=== PATIENT | male | born 1990 | race Hispanic/Latino ===

== ENCOUNTER 2019-09-15 14:14 | Emergency (ER) | payer OTHER ==
[2019-09-15 15:31] LABS: #Eosinphils 0.1 thou/uL (0.0-0.7); #Lymphocytes 1.4 thou/uL (1.20-3.40); #Monocytes 0.7 thou/uL (0.11-0.59); #Neutrophils 8.9 thou/uL (1.40-6.50); %Basophils 0.4 % (0.0-1.0); %Eosinophils 0.5 % (0.0-10.0); %Lymphocytes 12.4 % (21.0-51.0); %Monocytes 6.1 % (0.0-10.0); %Neutrophils 80.7 % (42.0-75.0); Mean Corpuscular HGB CONC 34.4 g/dL (32.0-36.0); Mean Corpuscular Hemoglobin 30.1 pg (27.0-31.0); Mean Corpuscular Volume 87.5 fL (78.0-98.0); Mean Platelet Volume 8.3 fL (7.4-10.4); Platelet Count 203 thou/uL (130-400); RBC Distribution Width 11.9 % (11.5-14.5); Red Blood Cell (RBC) Count 5.34 mill/uL (4.70-6.10)
--- NOTE | 2019-09-15 15:48 | CT ---
CT BRAIN NONCONTRAST: DATE: 09/15/2019 HISTORY: 28-year-old male status post acute head trauma from fall due to loss of consciousness from seizure. FINDINGS: There is no evidence of acute intra-axial or extra-axial hemorrhage. There is no midline shift or any other mass effect. There is no extra-axial fluid collection. There is no evidence of obstructive hydrocephalus. Calvarium is intact. IMPRESSION: No acute intracranial findings.
[2019-09-15 15:51] LABS: ALT (SGPT) 26 U/L (8-55); AST (SGOT) 19 U/L (5-34); Albumin 4.7 g/dL (3.5-5.0); Alkaline Phosphatase 55 U/L (40-110); Anion Gap 13 mmol/L (10-20); BUN (Urea Nitrogen) 7 mg/dL (8.9-20.6); Bilirubin, Total 1.1 mg/dL (0.2-1.2); Calc. Creatinine Clearance 0 mL/min (70-130); Calcium 9.6 mg/dL (7.8-10.44); Carbon Dioxide 24 mmol/L (22-29); Chloride 104 mmol/L (98-107); Estimated GFR-MDRD 85; Globulin 3.1 g/dL (2.4-3.5); Glucose 94 mg/dL (70-105); Protein, Total 7.8 g/dL (6.0-8.3); Sodium 137 mmol/L (136-145)
--- NOTE | 2019-09-15 16:08 | RAD ---
EXAM: Single view of the chest HISTORY: Chest pain COMPARISON: None FINDINGS: Single view of the chest shows a normal sized cardiomediastinal silhouette. There is no andrew dence of consolidation, mass, or pleural effusion. The bones are unremarkable. IMPRESSION: No evidence of acute cardiopulmonary disease
[2019-09-15 16:12] LABS: Acetaminophen Less than 6.0 mcg/mL (10.0-30.0); Alcohol Less than 10 mg/dL (Less than 10); Magnesium 2.3 mg/dL (1.6-2.6); Salicylate Less than 8.0 mg/dL (15.0-30.0)
[2019-09-15 17:56] LABS: Color Of CSF Supernatant COLORLESS (Colorless); Tube # 2; Unspun CSF Color COLORLESS (Colorless)
[2019-09-15 18:03] LABS: CSF Source CSF; Clarity Hazy (Clear); Tube # 4
[2019-09-15 18:04] LABS: CSF Source CSF; Clarity Clear (Clear); Tube # 1
[2019-09-15 18:08] LABS: CSF, Glucose 51 mg/dl (40-70); CSF, Protein 42 mg/dL (15-40)
[2019-09-15 18:13] LABS: Bilirubin Negative (Negative); Blood, Urine Negative (Negative); Clarity Clear (Clear); Glucose, Urine (Dipstick) Normal (Negative); Leukocyte Negative Leu/uL (Negative); Mucous/LPF Rare LPF (<2+); Nitrite Negative (Negative); Protein, Urine (Dipstick) 30 mg/dL (Neg-Trace); RBC/HPF 0-3 HPF (0-3); Squamous Epithelial 0-3 HPF (0-3); Urobilinogen Normal mg/dL (Less than 2); WBC/HPF 0-3 HPF (0-3)
[2019-09-15 18:14] LABS: Amphetamine Not Detected (NotDetected); Barbiturates Screen Not Detected (NotDetected); Benzodiazepine Screen Detected (NotDetected); Cocaine Metabolite Screen Not Detected (NotDetected); Medtox Control Line Valid? VALID (VALID); Medtox Reader # READER 4; Methadone Not Detected (NotDetected); Methamphetamine Not Detected (NotDetected); Opiate Screen Not Detected (NotDetected); Oxycodone Screen Not Detected (NotDetected); Phencyclidine (PCP) Not Detected (NotDetected); THC/Cannabinoid Screen Not Detected (NotDetected); Tricyclic Screen Not Detected (NotDetected)
[2019-09-15 18:20] LABS: Bacteria/HPF None Seen HPF (None Seen)
[2019-09-15] MEDS ORDERED: Meclizine HCl 25 MG TAB ONE (19:47)
[2019-09-15] MEDS ORDERED: Ketorolac Tromethamine 30 MG/ML VIAL ONE (19:47)
--- NOTE | 2019-09-15 20:13 | CT ---
EXAM: CTA head without and with contrast HISTORY: Dizziness and seizure just prior to arrival. Questionable subarachnoid hemorrhage COMPARISON: CT brain 09/15/2019 TECHNIQUE: Multiple contiguous axial images were obtained and a CTA of the head without and with contrast. 3-D sagittal and coronal MIP reformats were performed. FINDINGS: The brain is normal in morphology and attenuation without focal lesions or confluent areas of infarct ion. There is no evidence of hydrocephalus, intracranial hemorrhage, or extra-axial fluid collection. Right intracranial internal carotid artery: Patent without narrowing or occlusion Right anterior cerebral artery: Patent without narrowing or occlusion Right middle cerebral artery: Patent without narrowing or occlusion Left intracranial internal carotid artery: Patent without narrowing or occlusion Left anterior cerebral artery: Patent without narrowing or occlusion Left middle cerebral artery: Patent without narrowing or occlusion No aneurysmal dilatation is seen in the anterior circulation. Right vertebral artery: Patent without narrowing or occlusion Left vertebral artery: Patent without narrowing or occlusion Basilar artery: Patent without narrowing or occlusion The posterior cerebral arteries and cerebellar arteries are patent without narrowing or occlusion. No aneurysmal dilatation is seen in the posterior circulation. IMPRESSION: No significant CTA abnormality of the head
== END 2019-09-15 20:37 | disposition home or self-care (01) ==
LOC: EDBD 14:14 → ERS 14:14
DX: R56.9 Unspecified convulsions (principal)
CPT/HCPCS: 62270; 70450; 70496; 71045; 80053; 80306; 80307; 81003; 81015; 82945; 83735; 84146; 84157; 84443; 84484; 85025; 87070; 87205; 89051; 93005; 96374; J1885; J8597

== ENCOUNTER 2020-05-30 14:13 | Emergency (ER) | payer OTHER, SELFPAY ==
[2020-05-30] MEDS ORDERED: Lidocaine 1% w/Epinephrine 1:100K 20 ML VIAL ONE (15:09)
--- NOTE | 2020-05-30 15:17 | RAD ---
TWO VIEWS OF THE RIGHT WRIST: 05/30/20 PROVIDED CLINICAL HISTORY: Pain status post injury. FINDINGS: there is no evidence for fracture or other acute osseous abnormality. Alignment appears anatomic. Anne nt spaces appear preserved. No evidence for radiopaque foreign body. IMPRESSION: No evidence for radiopaque foreign body. POS: [facility]
[2020-05-30] MEDS ORDERED: Adacel (T-DAP) 0.5 ML SYRINGE ONE (15:22)
[2020-05-30] MEDS ORDERED: Bacitracin 1 PK ONE (16:14)
== END 2020-05-30 16:29 | disposition home or self-care (01) ==
LOC: ERS 14:13
DX: S61.511A Laceration without foreign body of right wrist, initial encounter (principal); Z23 Encounter for immunization; W26.8XXA Contact with other sharp object(s), not elsewhere classified, initial encounter
CPT/HCPCS: 90715